=== PATIENT | female | born 1970 | race Caucasian/White ===

== ENCOUNTER 2017-05-28 19:37 | Inpatient (IN) | payer MEDICAID ==
[~2017-05-28] VITALS: Ht 157.5 cm; Wt 83.5 kg
[~2017-05-28 19:37] MED LIST: ASPIR 8181 MG PO; COLACE100 MG PO; METFORMIN HCL500 MG PO; NORCO1 TA2 PO
[2017-05-28 22:41] LABS: PLATELET COUNT 227 x10^3mcL (130-400); RED CELL DISTRIBUTION WIDTH 12.8 % (11.5-14.5)
[2017-05-28 22:44] LABS: UA SPECIFIC GRAVITY 1.015 (1.005-1.035); microscopic required? YES; urine erythrocyte 2+ (NEGATIVE)
[2017-05-28 22:44] LABS: CALCIUM 8.9 mg/dL (8.5-10.1); CARBON DIOXIDE 25.9 mmol/L (21-32); CHLORIDE SERUM 100 mmol/L (98-107); CREATININE SERUM 0.7 mg/dL (0.6-1.0); GFR1 > 60 mL/min; GLUCOSE SERUM 262 mg/dL (74-106); POTASSIUM SERUM 3.6 mmol/L (3.5-5.1); SODIUM SERUM 134 mmol/L (136-145)
[2017-05-28 22:48] LABS: ALBUMIN 3.1 g/dL (3.4-5.0); ALKALINE PHOSPHATASE 123 U/L (46-116); ALT/SGPT 49 U/L (14-59); AMYLASE 33 U/L (25-115); AST/SGOT 20 U/L (15-37); BILIRUBIN TOTAL 1.17 mg/dL (0.20-1.00); LIPASE 65 IU/L (73-393); TOTAL PROTEIN, SERUM 8.3 g/dL (6.4-8.2)
[2017-05-28 22:51] LABS: BASOPHIL % 0 % (0-2)
[2017-05-29] MEDS ORDERED: METFORMIN HYDR500 M1 (01:19)
[2017-05-29] MEDS ORDERED: ASPIRIN ADULT L81 M5 (01:19)
[2017-05-29] MEDS ORDERED: PRINIVIL20 MG (01:19)
[2017-05-29] MEDS ORDERED: AMOXICILLI125 MG/5 M (01:19)
[2017-05-29 02:31] VITALS: BP 136/86
[2017-05-29 05:52] VITALS: BP 128/75
[2017-05-29 09:16] LABS: T3 TOTAL 1.16 ng/mL
[2017-05-29 09:27] LABS: FREE T4 1.17 ng/dL (0.76-1.46); T4(THYROXINE) 9.5 ug/dL (4.7-13.3)
[2017-05-29 09:43] LABS: CHOLESTEROL/HDL RATIO 3.2; MAGNESIUM 1.9 mg/dL (1.8-2.4); PHOSPHOROUS 2.7 mg/dL (2.5-4.9)
[2017-05-29 10:11] VITALS: BP 110/65
[2017-05-29 13:19] VITALS: BP 100/70
[2017-05-29 16:25] VITALS: BP 101/50; BP 120/69
[2017-05-29 20:52] VITALS: BP 104/76
[2017-05-30 04:55] VITALS: Ht 157.5 cm; Wt 83.5 kg
[2017-05-30 05:30] VITALS: BP 111/61
[2017-05-30 06:05] LABS: BASOPHIL % 0.2 % (0-2); RED CELL DISTRIBUTION WIDTH 13.2 % (11.5-14.5)
[2017-05-30 06:40] LABS: CALCIUM 8.2 mg/dL (8.5-10.1); CARBON DIOXIDE 26.7 mmol/L (21-32); CHLORIDE SERUM 107 mmol/L (98-107); CREATININE SERUM 0.6 mg/dL (0.6-1.0); GFR1 > 60 mL/min; GLUCOSE SERUM 165 mg/dL (74-106); MAGNESIUM 2.3 mg/dL (1.8-2.4); PHOSPHOROUS 2.7 mg/dL (2.5-4.9); POTASSIUM SERUM 4.1 mmol/L (3.5-5.1); SODIUM SERUM 139 mmol/L (136-145)
[2017-05-30 07:30] VITALS: BP 132/78
[2017-05-30 09:32] LABS: PLATELET COUNT 149 x10^3mcL (130-400)
[2017-05-30 10:37] VITALS: BP 136/75
[2017-05-30 14:36] VITALS: BP 117/76
[2017-05-30 18:41] VITALS: BP 117/74
[2017-05-30 20:35] VITALS: BP 142/87
[2017-05-31 05:29] VITALS: BP 133/88
[2017-05-31 06:10] LABS: BASOPHIL % 0.4 % (0-2); PLATELET COUNT 198 x10^3mcL (130-400); RED CELL DISTRIBUTION WIDTH 12.7 % (11.5-14.5)
[2017-05-31 06:34] LABS: CALCIUM 8.4 mg/dL (8.5-10.1); CHLORIDE SERUM 103 mmol/L (98-107); CREATININE SERUM 0.5 mg/dL (0.6-1.0); GFR1 > 60 mL/min; GLUCOSE SERUM 134 mg/dL (74-106); POTASSIUM SERUM 3.9 mmol/L (3.5-5.1); SODIUM SERUM 137 mmol/L (136-145)
[2017-05-31 13:30] VITALS: BP 120/74
[2017-05-31 17:47] VITALS: BP 112/74
[2017-05-31 21:42] VITALS: BP 96/59
[2017-06-01 05:48] VITALS: BP 139/78
[2017-06-01 06:28] LABS: BASOPHIL % 0.1 % (0-2); RED CELL DISTRIBUTION WIDTH 12.8 % (11.5-14.5)
[2017-06-01 06:39] LABS: CALCIUM 8.1 mg/dL (8.5-10.1); CARBON DIOXIDE 26.5 mmol/L (21-32); CHLORIDE SERUM 102 mmol/L (98-107); CREATININE SERUM 0.5 mg/dL (0.6-1.0); GFR1 > 60 mL/min; GLUCOSE SERUM 162 mg/dL (74-106); MAGNESIUM 1.9 mg/dL (1.8-2.4); PHOSPHOROUS 3.8 mg/dL (2.5-4.9); POTASSIUM SERUM 3.8 mmol/L (3.5-5.1); SODIUM SERUM 137 mmol/L (136-145)
[2017-06-01 06:58] LABS: PLATELET COUNT 147 x10^3mcL (130-400)
[2017-06-01 09:50] VITALS: BP 142/84
[2017-06-01 14:06] VITALS: BP 140/91
[2017-06-01 17:21] VITALS: BP 150/90
[2017-06-01 22:09] VITALS: BP 129/81
[2017-06-02 05:35] VITALS: BP 126/81
[2017-06-02 06:31] LABS: BASOPHIL % 0.2 % (0-2); PLATELET COUNT 232 x10^3mcL (130-400); RED CELL DISTRIBUTION WIDTH 13.1 % (11.5-14.5)
[2017-06-02 06:51] LABS: CALCIUM 8.2 mg/dL (8.5-10.1); CARBON DIOXIDE 28.1 mmol/L (21-32); CHLORIDE SERUM 103 mmol/L (98-107); CREATININE SERUM 0.6 mg/dL (0.6-1.0); GFR1 > 60 mL/min; GLUCOSE SERUM 153 mg/dL (74-106); POTASSIUM SERUM 3.6 mmol/L (3.5-5.1); SODIUM SERUM 138 mmol/L (136-145)
[2017-06-02 06:57] LABS: ALBUMIN 2.3 g/dL (3.4-5.0)
[2017-06-02 10:34] VITALS: BP 138/84
[2017-06-02 11:44] VITALS: BP 138/84
[2017-06-02 13:51] VITALS: BP 121/80
[2017-06-02] MEDS ORDERED: ZES20 PO (14:11)
[2017-06-02] MEDS ORDERED: ECO81 PO (14:12)
[2017-06-02] MEDS ORDERED: APAP/HYDROCODON1 T13 PO (14:13)
[2017-06-02] MEDS ORDERED: DUL5 PO (14:14)
[2017-06-02] MEDS ORDERED: COL100 PO (14:14)
[2017-06-02] MEDS ORDERED: METFORMIN HCL1000 MG PO (14:15)
[2017-06-02] MEDS ORDERED: GLU5 PO (14:16)
[2017-06-02] MEDS ORDERED: IBUPROFEN400 MG PO (14:28)
== END 2017-06-02 15:57 | disposition home or self-care (01) | DRG 228 ==
LOC: ED 19:37 → DU 05-29 01:29
PROVIDERS: Emergency Medicine; Family Medicine; Surgery; ADMIT Family Medicine
PROC: 0DBU0ZZ Excision of Omentum, Open Approach (ICD-10-PCS; 2017-05-31)
PROC: 0WUF0JZ Supplement Abdominal Wall with Synthetic Substitute, Open Approach (ICD-10-PCS; principal; 2017-05-31 08:00)
DX: K42.0 Umbilical hernia with obstruction, without gangrene (principal); N17.0 Acute kidney failure with tubular necrosis; D68.69 Other thrombophilia; E44.0 Moderate protein-calorie malnutrition; E11.65 Type 2 diabetes mellitus with hyperglycemia; E87.1 Hypo-osmolality and hyponatremia; N39.0 Urinary tract infection, site not specified; K45.0 Other specified abdominal hernia with obstruction, without gangrene; E83.51 Hypocalcemia; R31.9 Hematuria, unspecified; R80.9 Proteinuria, unspecified; K76.0 Fatty (change of) liver, not elsewhere classified; D64.9 Anemia, unspecified; Z79.82 Long term (current) use of aspirin; Z68.33 Body mass index [BMI] 33.0-33.9, adult; Z79.84 Long term (current) use of oral hypoglycemic drugs
CPT/HCPCS: 82962; 83880; 84439; 90658; C1781; J0330; J0690; J0696; J1885; J2175; J2250; J2405; J2704; J2765; J3010; J3490; J7030; Q0092